=== PATIENT | male | born 1955 | race Caucasian/White ===

== ENCOUNTER → 2019-04-14 09:23 | Day surgery (SDC) | payer BC ==
--- NOTE | 2019-04-11 10:19 | HP ---
CC: Dr. Hyacinth Wilder HISTORY AND PHYSICAL: DATE OF PLANNED ADMISSION AND SURGERY: 04/14/19 HISTORY OF PRESENT ILLNESS: Mr. Carter is a 64-year-old white male who is admitted with a distal left ureteral calculus for cystoscopy, left ureteroscopy , laser lithotripsy, and left ureteral stent insertion. Mr. Carter is a known stone former and in the past had required left ureteroscopy for a left ureteral calculus. He had residual bilateral renal calculi. He presented to my office 2 months ago with urgency, frequency, and mild left flank pain. Renal and full bladder ultrasounds at that time showed a 5 to 6 mm calculus in the distal left ureter associated with mild left hydronephrosis. The patient was managed conservatively with tamsulosin and pain medications as needed. He continued to have on and off [id number] bladder and renal symptoms and he has been managing them with Naprosyn as needed for pain. On his most recent evaluation 4 days prior to this admission, he had a repeat renal ultrasound which continued to show mild left hydronephrosis and the 6 mm calculus at the left ureterovesical junction with decreased jets from the left orifice. Because of the above history, the duration of time the stone has been in the same location, the plan is for endoscopic stone extraction. PAST MEDICAL HISTORY AND SYSTEM REVIEW: The patient has hypogonadism and has been maintained on AndroGel. He has bladder outlet obstruction and has been on tamsulosin 0.8 mg daily. His PSA has been stable and normal around 2.7. He has hypothyroidism, on Synthroid 50 mcg daily. He has GERD and takes famotidine as needed for acid reflux. He is, otherwise, in very good health. He denies any cardiac or pulmonary diseases or symptoms. He has good exercise tolerance. ALLERGIES: The patient reports being allergic to PENICILLIN, which gives him hives. He reports having had tendonitis when he used Cipro, but he is not sure about that reaction, and had taken Cipro subsequently without side effects. FAMILY HISTORY: Negative for prostate carcinoma. SOCIAL HISTORY: He is a nonsmoker. PHYSICAL EXAMINATION GENERAL: He is a pleasant and healthy-looking white male. VITAL SIGNS: Blood pressure 130/70, pulse of 80. LUNGS: Clear. HEART: Regular and rhythmic. No murmurs. ABDOMEN: Soft. No masses. No tenderness. There is mild left CVA tenderness. : External genitalia are normal. RECTAL: Exam had showed a moderately enlarged, but nonsuspicious prostate. IMPRESSION: 1. 6 mm calculus at the left ureterovesical junction in the same location for the last 2 months with on and off episodes of left flank pain and mild left hydronephrosis on renal ultrasound. 2. Nonobstructing 5 mm calculus in the right kidney. 3. Hypogonadism, on testosterone replacement. 4. Hypothyroidism, on replacement. PLAN: Plan is for cystoscopy, left ureteroscopy, laser lithotripsy, and left ureteral stent insertion. I discussed the above plans in detail with the patient. All his questions were answered. [id number]/CPS #: [id number] DANIELA
[~2019-04-14 09:23] MED LIST: Acetaminophen TAB* 325 MG ONE; Acetaminophen TAB* 325 MG PO ONE; Acetaminophen TAB* 325 MG PO PRN; Buffered Lidocaine 1% SYRIN* 1 ML/SYRINGE INTRADERM ONE; Cisatracurium* 2 MG/ML MDV 5 ML ONE; Dexamethasone IV* 4 MG/ML 1 ML (4 MG) ONE; DiMENhydriNATE IV* 50 MG/ML VIAL IV PUSH PRN; DiMENhydriNATE IV* 50 MG/ML VIAL ONE; Gentamicin ADULT (*) 160 MG in NS 0.9% 100 ML* 100 ML IVPB ONE; HYDROcodone/ACETAMIN 5-325 MG* 1 TAB ONE; HYDROcodone/ACETAMIN 5-325 MG* 1 TAB PO PRN; Iohexol 180 (CONTRAST) 10 ML SDV IV ONE; Lactated Ringers 1000 ML Bag* 1,000 ML IV SCH; Lidocaine 2% PF * 5 ML VIAL ONE; Midazolam* 1 MG/ML 2 ML VIAL (2 MG) ONE; Naloxone* 0.4 MG/ML 1 ML VIAL IV PRN; Neostigmine Methylsulfate* 1 MG/ML 10 ML VIAL (1 mg/ml) ONE; Ondansetron INJ* 2 MG/ML VIAL IV PRN; Ondansetron INJ* 2 MG/ML VIAL ONE; Propofol* 10 MG/ML 20 ML BTL ONE; Succinylcholine* 20 MG/ML 10 ML VIAL ONE; diPHENhydraMINE IV* 50 MG/ML 1 ml VIAL (BENADRYL) IV PRN; fentaNYL* 50 MCG/ML 2 ML VIAL (100 MCG VIAL) IV PRN; fentaNYL* 50 MCG/ML 2 ML VIAL (100 MCG VIAL) ONE
--- NOTE | 2019-04-14 14:47 | OP ---
CC: Dr. Hyacinth Wilder * DATE OF OPERATION: 04/14/19 - [facility] DATE OF : 51 SURGEON: Russ Hayes MD ANESTHESIOLOGIST: Dr. Freddie Olivares. ANESTHESIA: General. PRE-OP DIAGNOSIS: Distal left ureteral calculus. POST-OP DIAGNOSIS: Distal left ureteral calculus. OPERATIVE PROCEDURE: 1. Cystoscopy. 2. Left ureteroscopy and basketing of distal left ureteral calculus. 3. Left retrograde pyelography and insertion of left ureteral stent (6 Romanian). INDICATION FOR PROCEDURE: Mr. Carter is a 64-year-old white male who is a known stone former and who, for the last 2 months, has been having symptoms related to distal left ureteral calculus with bladder symptoms and on and off episodes of left flank pain. Renal ultrasound confirmed the presence of a 6 mm calculus at the left ureterovesical junction. There was also a 5 mm calculus in the lower pole calyx of the left kidney. Because of the above history, the fact that the stone has been in the same position for the last 2 months, the above procedure was advised and accepted. PATHOLOGY: At cystoscopy, the penile and bulbar urethrae looked normal. The prostatic urethra measured 2.5 to 3 cm in length and there was moderate obstruction by trilobar hyperplasia of the prostate. Examination of the bladder showed edema of the left trigone and left orifice. The rest of the bladder wall looked normal. There were no suspicious bladder lesion seen. No calculi or diverticula were noted. At fluoroscopy, there was a 5 mm radiopaque calculus noted in the lower pole calyx of the left kidney. At left ureteroscopy, there was 6 to 7 mm calculus just proximal to the ureteral orifice. The calculus had the gross appearance of calcium oxylate stone. There was edema of the adjacent ureteral mucosa. DESCRIPTION OF PROCEDURE: After successful general anesthesia, the patient was placed in the lithotomy position and was prepped and draped for cystoscopy. Cystoscopy was performed. The bladder was inspected and the above findings were noted. A flexible tip hybrid wire was then introduced into the left orifice and positioned without difficulty into the area of the renal pelvis. A size 6.5 semi-rigid tapered ureteroscope was then introduced inside the bladder. A flexible tip basket was then introduced through the port of the ureteroscope and its flexible tip was introduced inside the left orifice along side the guidewire. That allowed the atraumatic introduction of the ureteroscope inside the ureter. The calculus was identified just proximal to the orifice. Ureteroscopy was then performed all the way into the proximal ureter and no additional calculi were noted. The ureteroscope was then withdrawn to the distal ureter. The basket was deployed and the stone was engaged and was extracted with minimal trauma to the orifice. Retrograde pyelography was then performed. A size 6 Romanian stent was then placed with the proximal end coiling in the renal pelvis and the distal end coiling inside the bladder. There was good drainage of contrast from the kidney. A 16 Romanian Quiros catheter was then passed inside the bladder. The patient tolerated the procedure well and left the operating room in good condition. The plan is to leave the stent in place until next week. It will be removed in the office under local anesthesia. [id number]/CPS #: [id number] MTDD
[2019-04-14 15:35] VITALS: BP 136/81
== END | disposition home or self-care (01) ==
LOC: OR 09:23
PROVIDERS: ATTEND Urology
DX: N20.1 Calculus of ureter (principal); N20.0 Calculus of kidney; N13.30 Unspecified hydronephrosis; E29.1 Testicular hypofunction; E03.9 Hypothyroidism, unspecified; K21.9 Gastro-esophageal reflux disease without esophagitis; Z88.0 Allergy status to penicillin
CPT/HCPCS: 74420; 82365; 88305; A9270-GY; C1876; J0330; J1100; J1240; J1580; J2250; J2405; J2704; J2710; J3010